=== PATIENT | male | born 1955 | race American Indian/Alaskan Native ===

== ENCOUNTER 2018-05-19 15:34 | Emergency (ER) | payer OTHER ==
[2018-05-19 15:55] VITALS: RESP 18
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
[2018-05-19 15:58] VITALS: TEMP 98.3
[2018-05-19] MEDS ORDERED: Naproxen 550 mg Tab PO STA (16:07)
[2018-05-19 16:45] VITALS: BP 132/78; PULSE 80; O2SAT 97
== END 2018-05-19 16:44 | disposition home or self-care (01) ==
LOC: ED 15:34
DX: M25.561 Pain in right knee (principal); M25.562 Pain in left knee; M54.9 Dorsalgia, unspecified; E11.9 Type 2 diabetes mellitus without complications; I10 Essential (primary) hypertension